=== PATIENT | male | born 1950 | race Caucasian/White ===

== ENCOUNTER 2021-08-17 13:15 | Emergency (ER) | payer OTHER, MEDICARE ==
[~2021-08-17] VITALS: Ht 193 cm; Wt 88.6 kg
[~2021-08-17 13:15] MED LIST: ATE25T PO; ATOV750O2 PO; BICITRA PO; ERGO400C PO; FINA5TAB11 PO; FLO0.4C PO; HYDR-3965 PO; MULT-785 PO; OMEP-84 PO; OSC500T PO; PRED20TA PO; PREG75CA30 PO; PSYLLIUM
[2021-08-17] MEDS ORDERED: vancomycin/NS 1 GM ADD-VANTAGE 250 ML IV ONE (15:10)
[2021-08-17] MEDS ORDERED: CefTRIAXone 2gm/D5W 50ml BAG 50 ML IV ONE (15:10)
[2021-08-17 15:33] LABS: BASOPHILS % (AUTO) 0.3 % (0-1); EOSINOPHILS % (AUTO) 0 % (0-6); HEMATOCRIT 42.9 % (42.0-52.0); HEMOGLOBIN 14.5 g/dl (14.0-17.9); LYMPHOCYTES # (AUTO) 0.8 X10'3 (1.1-4.8); LYMPHOCYTES % (AUTO) 8.3 % (21-51); MEAN CORPUSCULAR HEMOGLOBIN 31.6 PG (27.0-31.0); MEAN CORPUSCULAR HGB CONC 33.9 g/dL (33.0-36.5); MEAN CORPUSCULAR VOLUME 93.2 FL (78-98); MEAN PLATELET VOLUME 8.3 FL (7.4-10.4); MONOCYTES # (AUTO) 0.4 X10'3 (0-0.9); MONOCYTES % (AUTO) 4.1 % (2-12); NEUTROPHILS # (AUTO) 8.3 X10'3 (1.8-7.7); NEUTROPHILS % (AUTO) 87.3 % (42-75); PLATELET COUNT 149 X10'3 (140-440); WHITE BLOOD COUNT 9.5 X10'3 (4.5-11.0)
[2021-08-17 15:54] LABS: ALANINE AMINOTRANSFERASE 32 U/L (12-78); ALBUMIN 3.6 G/DL (3.4-5.0); ALKALINE PHOSPHATASE 59 IU/L (46-116); ANION GAP 9 (8-16); ASPARTATE AMINO TRANSFERASE 18 U/L (10-37); BILIRUBIN,TOTAL 0.3 MG/DL (0.1-1.0); BLOOD UREA NITROGEN 35 MG/DL (7-18); BUN/CREATININE RATIO 15.2 (5.4-32.0); CALCIUM 8.6 MG/DL (8.5-10.1); CHLORIDE 100 MMOL/L (99-107); CREATININE 2.31 MG/DL (0.60-1.10); GLUCOSE 141 MG/DL (70-104); MAGNESIUM 2.6 MG/DL (1.5-2.4); POTASSIUM 4.1 MMOL/L (3.5-5.1); SODIUM 137 MMOL/L (135-145); TOTAL CARBON DIOXIDE 27.8 MMOL/L (24-32); TOTAL PROTEIN 7.1 G/DL (6.4-8.2); eGFR 28 ML/MIN
[2021-08-17 16:30] LABS: CLARITY,URINE CLOUDY (Clear); GLUCOSE, URINE NEGATIVE (Neg); KETONES,URINE NEGATIVE (Neg); LEUKOCYTE ESTERASE ,URINE MODERATE (Neg); NITRITES, URINE NEGATIVE (Neg); OCCULT BLOOD,URINE TRACE-INTACT (Neg); PH,URINE 5.5 (4.8-8.0); PROTEIN,URINE TRACE mg/dl (Neg); UROBILINOGEN,URINE 0.2 E.U/dL (0.2-1.0)
[2021-08-17 16:32] LABS: COLOR,URINE STRAW (Yellow); UA COLLECTION TYPE CLN CATCH MIDSTREAM
[2021-08-17 16:42] LABS: SQUAMOUS EPITHELIAL CELL,UR FEW /LPF (FEW)
[2021-08-17 16:43] LABS: WBC,URINE TNTC /HPF (0-4)
[2021-08-17 16:44] LABS: BACTERIA,URINE 4+ /HPF (Neg); MUCUS STRANDS FEW /LPF (Neg); WBC CLUMPS,URINE MODERATE /HPF (NEGATIVE)
[2021-08-17] MEDS ORDERED: TETanus/Pertussis (Acell)/Diphther VAC/PF (Tdap-Adult) 0.5ml syringe IMVAC ONE (16:50)
[2021-08-17 17:09] VITALS: BP 186/113
[2021-08-17] MEDS ORDERED: ondansetron/PF 4mg/2ml inj IV ONE (17:10)
[2021-08-17] MEDS ORDERED: morphine 4 MG/ML inj SYRINge IV ONE (17:10)
[2021-08-17] MEDS ORDERED: SULF1TAB49 PO (18:16)
[2021-08-17] MEDS ORDERED: CEPH-585 PO (18:16)
[2021-08-17] MEDS ORDERED: ONDA4TAB6 PO (19:04)
[2021-08-17] MEDS ORDERED: HYDR-3964 PO (19:04)
== END 2021-08-17 20:12 | disposition home or self-care (01) ==
LOC: ER 13:16
DX: L03.114 Cellulitis of left upper limb (principal); N39.0 Urinary tract infection, site not specified; M79.642 Pain in left hand; E78.00 Pure hypercholesterolemia, unspecified; J44.9 Chronic obstructive pulmonary disease, unspecified; K21.9 Gastro-esophageal reflux disease without esophagitis; G89.29 Other chronic pain; Z20.3 Contact with and (suspected) exposure to rabies; Z87.01 Personal history of pneumonia (recurrent); Z98.890 Other specified postprocedural states; Z72.89 Other problems related to lifestyle; Z79.2 Long term (current) use of antibiotics; Z79.899 Other long term (current) drug therapy
CPT/HCPCS: 36415; 73200; 80053; 81001; 83605; 83735; 84145; 85025; 87040; 87077; 87088; 87186; 90471; 90715; 93005; 96365; 96366; 96368; 96375; 99285; J0696; J2270; J2405; J3370

== ENCOUNTER 2021-12-24 08:55 | Emergency (ER) | payer OTHER, MEDICARE ==
[~2021-12-24] VITALS: Ht 193 cm; Wt 90.9 kg
[~2021-12-24 08:55] MED LIST changes: +CEPH-585 PO; +ONDA4TAB6 PO
[2021-12-24 10:06] LABS: BASOPHILS % (AUTO) 0.2 % (0-1); EOSINOPHILS % (AUTO) 0 % (0-6); HEMATOCRIT 48.7 % (42.0-52.0); HEMOGLOBIN 16.4 g/dl (14.0-17.9); LYMPHOCYTES # (AUTO) 0.4 X10'3 (1.1-4.8); MEAN CORPUSCULAR HEMOGLOBIN 30.6 PG (27.0-31.0); MEAN CORPUSCULAR HGB CONC 33.7 g/dL (33.0-36.5); MEAN CORPUSCULAR VOLUME 90.7 FL (78-98); MEAN PLATELET VOLUME 8.8 FL (7.4-10.4); MONOCYTES # (AUTO) 0.5 X10'3 (0-0.9); MONOCYTES % (AUTO) 6.2 % (2-12); NEUTROPHILS # (AUTO) 7.3 X10'3 (1.8-7.7); NEUTROPHILS % (AUTO) 88.6 % (42-75); PLATELET COUNT 121 X10'3 (140-440); RED BLOOD COUNT 5.37 X10'6 (4.70-6.10); RED CELL DISTRIBUTION WIDTH 13.3 % (11.5-14.5); WHITE BLOOD COUNT 8.2 X10'3 (4.5-11.0)
[2021-12-24 10:17] LABS: ALANINE AMINOTRANSFERASE 29 U/L (12-78); ALBUMIN 3.9 G/DL (3.4-5.0); ALBUMIN/GLOBULIN RATIO 1.1 (1.1-1.5); ALKALINE PHOSPHATASE 68 IU/L (46-116); ANION GAP 13 (8-16); ASPARTATE AMINO TRANSFERASE 26 U/L (10-37); BILIRUBIN,TOTAL 0.4 MG/DL (0.1-1.0); BLOOD UREA NITROGEN 33 MG/DL (7-18); BUN/CREATININE RATIO 16.7 (5.4-32.0); CHLORIDE 102 MMOL/L (99-107); CREATININE 1.98 MG/DL (0.60-1.10); GLUCOSE 102 MG/DL (70-104); POTASSIUM 3.9 MMOL/L (3.5-5.1); SODIUM 139 MMOL/L (135-145); TOTAL CARBON DIOXIDE 24.2 MMOL/L (24-32); TOTAL PROTEIN 7.4 G/DL (6.4-8.2); eGFR 34 ML/MIN
[2021-12-24] MEDS ORDERED: albuterol 2.5 MG/3 ML nebule CONTNEB PRN (10:45)
[2021-12-24] MEDS ORDERED: metoclopramide 5 mg/ml inj IV ONE (10:50)
[2021-12-24] MEDS ORDERED: FLUT1DIS20 INH ×2 (13:18→14:28)
[2021-12-24 13:26] VITALS: BP 142/91
== END 2021-12-24 13:33 | disposition home or self-care (01) ==
LOC: ER 08:56
DX: J20.9 Acute bronchitis, unspecified (principal); E78.00 Pure hypercholesterolemia, unspecified; J44.9 Chronic obstructive pulmonary disease, unspecified; K21.9 Gastro-esophageal reflux disease without esophagitis; G89.29 Other chronic pain; Z87.01 Personal history of pneumonia (recurrent); Z72.89 Other problems related to lifestyle; Z79.899 Other long term (current) drug therapy; Z87.891 Personal history of nicotine dependence
CPT/HCPCS: 36415; 71046; 80053; 83605; 83880; 85025; 87040; 93005; 94644; 96374; 99285; J2765; 94640; A7015

== ENCOUNTER 2025-06-13 19:59 | Emergency (ER) | payer OTHER, MEDICARE ==
[~2025-06-13] VITALS: Ht 193 cm; Wt 88.6 kg
[~2025-06-13 19:59] MED LIST changes: -CEPH-585 PO; -FLO0.4C PO; +FLUT1DIS20 INH; +TAMS-55 PO
--- NOTE | 2025-06-13 20:19 | Physician Documentation ---
History of Present Illness ~ Chief Complaint: Leg Laceration Stated Complaint: L LEG LACS Time Seen by MD: 21:28 Primary Medical Doctor: DR Nicole PHILLIPS LA HPI This is a 75-year-old male who presents with a laceration to his left mills caused by slipping while climbing into a pickup truck striking his leg on truck step. Patient reports tetanus shot in the last five years. Tetanus Within 5 Years: No Medication Reconciliation Allergies: Coded Allergies: No Known Allergies (Unverified , 11/05/10) Scheduled Atenolol* (Tenormin*), 25 MG PO DAILY Atovaquone (Mepron), 1,500 MG PO DAILY, (Reported) Calcium Carbonate* (Oscal*), 500 MG PO DAILY, (Reported) Citric Acid/Sodium Citrate (Bicitra), 30 ML PO BID, (Reported) Finasteride (Finasteride), 5 MG PO DAILY, (Reported) Fluticasone/Salmeterol (Advair 250-50 Diskus), 1 PUFFS INH Q12H Multivitamins* (Multivitamin*), 1 EACH PO DAILY, (Reported) Omeprazole* (Prilosec*), 20 MG PO DAILY, (Reported) Ondansetron Hcl (Zofran), 1 TAB PO Q6H Prednisone* (Prednisone*), 20 MG PO DAILY, (Reported) Pregabalin* (Lyrica*), 75 MG PO BID, (Reported) Tamsulosin Hcl* (Flomax*), 0.4 MG PO HS, (Reported) Scheduled PRN Hydrocodone Bit/Acetaminophen 5/325 MG ([place] 5/325 MG), 1 TAB PO Q6H PRN, (Reported) Miscellaneous Medications Cholecalciferol (Vitamin D3) (Vitamin D), 400 UNITS PO, (Reported) Psyllium Seed (METAMUCIL packet), 1 PACKET, (Reported) Past Medical History Past Medical History: High Cholesterol, COPD, Pneumonia, GERD, Chronic Pain Past Surgical History: abdominal surgery Other Past Surgical History: BIHR Alcohol Use: Heavy Drug Use: none Lives with: Family Lives In: Home Occupation: employed Review of Systems ROS As stated above in the HPI, otherwise all systems are reviewed and negative. Physical Exam Vital Signs: Temperature: 97.6, Heart Rate: 66, Respiratory Rate: 16, BP: 197/127, Pulse Oximetry: 99, Weight: 88.640 Physical Exam VITALS: Reviewed and as above. GENERAL: Alert, nontoxic appearing, no apparent distress. HEENT: RESPIRATORY: No increased work of breathing, no respiratory distress, speaking in full clear sentences CHEST: CV: BACK: GI: MUSCULOSKELETAL: SKIN: Approximately 10 cm laceration avulsion to anterior left mills with minimal oozing bleeding NEURO: PSYCH: Procedures Laceration/Wound Repair Laceration : Anesthesia: Lidocaine w/ Epi Prep: irrigated by nurse Margins: revised Suture Size/Type: 3-0 Number Deep Layer Sutures: 30 Tolerated Procedure Well?: yes, no complications Progress Results/Orders Results/Orders Orders - MARGARITO HUGHES NP Laceration/I&D Tray Set Up (06/13/25 ) Completed Orders - MARGARITO HUGHES NP Lidocaine 1% W/Epi 1:100,000 (Xylocaine (06/13/25 21:50) Medications Received in ER Medications (Trade) Dose Ordered Sig/José Route PRN Reason Start Time Stop Time Status Last Admin Dose Admin (Xylocaine 1%-EPI 1:100,000) 30 ml ONCE ONCE SQ 06/13/25 21:50 06/13/25 21:51 DC 06/13/25 22:32 30 ML Vital Signs 06/13/25 20:05 Temp 97.6 Pulse 66 Resp 16 B/P (MAP) 197/127 Pulse Ox 99 Medical Decision Making Findings This laceration required extensive approximation via multiple sutures. Patient tolerated this well. 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 Departure Disposition: HOME / SELF CARE / HOMELESS Impression: Primary Impression: Laceration Discharge Instructions: Laceration Care, Adult Additional Instructions: Instructed keep the area clean and dry have the sutures removed in 7-10 days Referrals: NO PRIMARY CARE PROVIDER (PCP) Prescriptions Cephalexin*Monohydrate* (Keflex*) 500 Mg Capsule 1 CAP PO QID, #40 CAP Prov: MARGARITO HUGHES NP 06/13/25 Education Educated: Patient Signature Scribe Signature: f Attestation: Scribed for Margarito Hughes Np by Margarito Keith NP . 06/13/25 23:12 BELA H[employer]D [employer] WORK[employer] Jun 13, 2025 20:19 MARGARITO HUGHES NP Jun 13, 2025 23:13
[2025-06-13] MEDS: LIDOcaine 1% W/epiNEPHrine 1:100,000 20ml vial SQ ONE (22:32)
[2025-06-13] MEDS ORDERED: CEPH-585 PO (23:12)
[2025-06-13 23:21] VITALS: BP 190/120; PULSE 66; RESP 18; TEMP 98.6; O2SAT 99
== END 2025-06-13 23:23 | disposition home or self-care (01) ==
LOC: ER 20:00
DX: S81.812A Laceration without foreign body, left lower leg, initial encounter (principal); J44.9 Chronic obstructive pulmonary disease, unspecified; K21.9 Gastro-esophageal reflux disease without esophagitis; G89.29 Other chronic pain; E78.00 Pure hypercholesterolemia, unspecified; Z79.899 Other long term (current) drug therapy; W18.43XA Slipping, tripping and stumbling without falling due to stepping from one level to another, initial encounter; Y93.89 Activity, other specified; Y92.89 Other specified places as the place of occurrence of the external cause; Y99.8 Other external cause status
CPT/HCPCS: 12004; 99283; J3490; A6258; A6449